=== PATIENT | male | born 1950 | race Caucasian/White ===

== ENCOUNTER → 2017-08-15 | Outpatient (CLI) | payer MEDICARE ==
[~2017-08-15] MED LIST: HYPERTENSION; IBUPROFEN 800800 M1 PO; TRAMADOL 50 MG50 MG PO
== END ==
LOC: M.CT 11:28
DX: S00.93XA Contusion of unspecified part of head, initial encounter (principal); R22.0 Localized swelling, mass and lump, head; Z91.81 History of falling; X58.XXXA Exposure to other specified factors, initial encounter; Y93.89 Activity, other specified; Y92.89 Other specified places as the place of occurrence of the external cause; Y99.8 Other external cause status

== ENCOUNTER 2021-03-12 14:39 | Emergency (ER) | payer MEDICARE ==
[~2021-03-12] VITALS: Ht 198.1 cm; Wt 114.8 kg
[2021-03-12 16:33] LABS: CREATININE 1.9 mg/dL (0.6-1.3); POTASSIUM 5.4 mmol/L (3.5-5.1)
[2021-03-12 16:38] LABS: ALBUMIN 4.2 g/dL (3.4-5.0); TOTAL BILIRUBIN 0.7 mg/dL (<0.1-1.0)
[2021-03-12] MEDS ORDERED: HYDROCODON-ACE1 EA11 PO (17:59)
[2021-03-12 18:58] VITALS: BP 123/62
--- NOTE | 2021-03-13 17:23 | EKG ---
[place] [address] ELECTROCARDIOGRAM REPORT Name: LEONCIO MARTÍNEZ Room: [facility]#: [id number] Admission: 03/12/21 Attend Phys: Discharge: 03/12/21 Date of : 52 Date of Service: 03/12/21 1607 Report #: [id number] THIS REPORT FOR: //name// [facility] ED Test Date: 2021-03-12 Test Time: 16:07:11 Pat Name: LEONCIO MARTÍNEZ Department: Room: Gender: Contestant Coordinator: : 1950 Requested By: Salvatore Mccormick Order Number: [id number] MD: Hector Taylor Measurements Intervals [place] Rate: 70 P: 55 PA: 188 QRS: -72 QRSD: 125 T: 30 QT: 399 QTc: 431 Interpretive Statements Sinus rhythm Right bundle branch block Inferior infarct, old Baseline wander in lead(s) I,III,aVL No previous ECG available for comparison Electronically Signed On 03-13-2021 17:23:18 CDT by Hector Taylor [email or web address] <ELECTRONICALLY SIGNED> By: Hector Taylor MD, FACC 03/13/21 1723 1607 1607 Hector Taylor MD, FAC /EPI
== END 2021-03-12 19:05 | disposition home or self-care (01) ==
LOC: M.ERS 14:39
PROVIDERS: Emergency Medicine
DX: S22.42XA Multiple fractures of ribs, left side, initial encounter for closed fracture (principal); S50.02XA Contusion of left elbow, initial encounter; S51.012A Laceration without foreign body of left elbow, initial encounter; R55 Syncope and collapse; R07.89 Other chest pain; I10 Essential (primary) hypertension; Z79.899 Other long term (current) drug therapy; W19.XXXA Unspecified fall, initial encounter; Y93.89 Activity, other specified; Y92.89 Other specified places as the place of occurrence of the external cause; Y99.8 Other external cause status